=== PATIENT | male | born 1980 | race American Indian/Alaskan Native ===

== ENCOUNTER 2021-03-10 00:29 | Emergency (ER) | payer OTHER ==
[2021-03-10] MEDS ORDERED: Sodium Chloride 0.9% 10 ML Syringe FLUSH PRN (00:52)
--- NOTE | 2021-03-10 02:09 | EDM.PDOC ---
ED HPI GENERAL MEDICAL PROBLEM - General Chief Complaint: Respiratory Problem Stated Complaint: SOB/TROUBLE CATCHING HIS BREATH Time Seen by Provider: 03/10/21 00:47 Source of Information: Reports: Patient History Limitations: Reports: No Limitations - History of Present Illness INITIAL COMMENTS - FREE TEXT/NARRATIVE: The patient presents with shortness of breath. This has been going no for a few days. He says he feels bad. He has a cough, fever, chills, generalized weakness, headache, body aches but no diarrhea, nausea or vomiting. He did not loose his sense of smell or taste. He smokes. He has no other medical problems such as asthma, heart disease, hypertension, or hypercholesterolemia. - Related Data Allergies Allergy/AdvReac Type Severity Reaction Status Date / Time No Known Allergies Allergy Verified 03/10/21 01:33 Home Meds: Home Meds dexAMETHasone [Dexamethasone] 6 mg PO DAILY #9 tab 03/10/21 [Rx] Past Medical History - Past Surgical History Other Musculoskeletal Surgeries/Procedures:: neck surgery, all disks removed Social & Family History - Tobacco Use Tobacco Use Status *Q: Current Status Unknown ED ROS GENERAL - Review of Systems Review Of Systems: See Below Constitutional: Reports: Fever, Chills, Malaise, Weakness, Fatigue HEENT: Reports: No Symptoms Respiratory: Reports: Shortness of Breath, Cough Cardiovascular: Reports: No Symptoms Endocrine: Reports: No Symptoms GI/Abdominal: Denies: Abdominal Pain, Diarrhea, Nausea, Vomiting : Reports: No Symptoms Musculoskeletal: Reports: Muscle Pain ED EXAM, GENERAL - Physical Exam Exam: See Below Exam Limited By: No Limitations General Appearance: Alert, Mild Distress Ears: Normal External Exam Nose: Normal Inspection Head: Atraumatic, Normocephalic Neck: Normal Inspection Respiratory/Chest: No Respiratory Distress, Lungs Clear, Normal Breath Sounds Cardiovascular: Regular Rate, Rhythm, No Edema, No Murmur GI/Abdominal: Soft, Non-Tender, No Organomegaly, No Mass Extremities: Normal Inspection Neurological: Alert, Oriented, No Motor/Sensory Deficits Course - Vital Signs Last Recorded V/S: Last Vital Signs Temp 97.3 F 03/10/21 00:37 Pulse 98 03/10/21 00:37 Resp 24 H 03/10/21 00:37 BP 151/104 H 03/10/21 00:37 Pulse Ox 94 L 03/10/21 00:37 - Orders/Labs/Meds Orders: Active Orders 24 hr Category Date Time Status Cardiac Monitoring [RC] . DIRECTED Care 03/10/21 00:52 Active Oxygen Therapy [RC] PRN Care 03/10/21 00:52 Active Peripheral IV Care [RC] . DIRECTED Care 03/10/21 00:53 Active RT Post Treatment Assessment [RC] Click to Edit Care 03/10/21 02:11 Active RT Pre-Treatment Assessment [RC] Click to Edit Care 03/10/21 02:11 Active Chest 1V Frontal [CR] Stat Exams 03/10/21 00:53 Taken CBC WITH AUTO DIFF [HEME] Stat Lab 03/10/21 01:27 Results Sodium Chloride 0.9% [Saline Flush] Med 03/10/21 00:52 Active 10 ml FLUSH ASDIRECTED PRN Peripheral IV Insertion Adult [OM.PC] Stat Oth 03/10/21 00:52 Ordered Medication Orders Sodium Chloride (Sodium Chloride 0.9% 10 Ml Syringe) 10 ml FLUSH ASDIRECTED PRN PRN Reason: Keep Vein Open Last Admin: 03/10/21 01:32 Dose: 10 ml Documented by: LIAN Labs: Laboratory Tests 03/10/21 03/10/21 03/10/21 Range/Units 00:59 01:27 01:27 WBC 7.08 (4.23-9.07) K/mm3 RBC 6.99 H (4.63-6.08) M/mm3 Hgb 18.1 H (13.7-17.5) gm/dl Hct 55.2 H (40.1-51.0) % MCV 79.0 (79.0-92.2) fl MCH 25.9 (25.7-32.2) pg MCHC 32.8 (32.2-35.5) g/dl RDW Std Deviation 41.7 (35.1-43.9) fL Plt Count 288 (163-337) K/mm3 MPV 10.5 (9.4-12.3) fl Neut % (Auto) 50.9 (34.0-67.9) % Lymph % (Auto) 35.9 (21.8-53.1) % Boundary % (Auto) 10.5 (5.3-12.2) % Eos % (Auto) 2.1 (0.8-7.0) Baso % (Auto) 0.3 (0.1-1.2) % Neut # (Auto) 3.61 (1.78-5.38) K/mm3 Lymph # (Auto) 2.54 (1.32-3.57) K/mm3 Boundary # (Auto) 0.74 (0.30-0.82) K/mm3 Eos # (Auto) 0.15 (0.04-0.54) K/mm3 Baso # (Auto) 0.02 (0.01-0.08) K/mm3 D-Dimer, Quantitative 0.83 H (0.19-0.50) mg/L Sodium (136-145) mEq/L Potassium (3.5-5.1) mEq/L Chloride (98-107) mEq/L Carbon Dioxide (21-32) mEq/L Anion Gap (5-15) BUN (7-18) mg/dL Creatinine (0.7-1.3) mg/dL Est Cr Clr Drug Dosing mL/min Estimated GFR (MDRD) (>60) mL/min BUN/Creatinine Ratio (14-18) Glucose (70-99) mg/dL Calcium (8.5-10.1) mg/dL Total Bilirubin (0.2-1.0) mg/dL AST (15-37) U/L ALT (16-63) U/L Alkaline Phosphatase (46-116) U/L Troponin I (0.00-0.056) ng/mL C-Reactive Protein (<1.0) mg/dL Total Protein (6.4-8.2) g/dl Albumin (3.4-5.0) g/dl Globulin gm/dL Albumin/Globulin Ratio (1-2) SARS-CoV-2 RNA (LOS) Positive H (NEGATIVE) 03/10/21 Range/Units 01:27 WBC (4.23-9.07) K/mm3 RBC (4.63-6.08) M/mm3 Hgb (13.7-17.5) gm/dl Hct (40.1-51.0) % MCV (79.0-92.2) fl MCH (25.7-32.2) pg MCHC (32.2-35.5) g/dl RDW Std Deviation (35.1-43.9) fL Plt Count (163-337) K/mm3 MPV (9.4-12.3) fl Neut % (Auto) (34.0-67.9) % Lymph % (Auto) (21.8-53.1) % Boundary % (Auto) (5.3-12.2) % Eos % (Auto) (0.8-7.0) Baso % (Auto) (0.1-1.2) % Neut # (Auto) (1.78-5.38) K/mm3 Lymph # (Auto) (1.32-3.57) K/mm3 Boundary # (Auto) (0.30-0.82) K/mm3 Eos # (Auto) (0.04-0.54) K/mm3 Baso # (Auto) (0.01-0.08) K/mm3 D-Dimer, Quantitative (0.19-0.50) mg/L Sodium 137 (136-145) mEq/L Potassium 4.3 (3.5-5.1) mEq/L Chloride 99 (98-107) mEq/L Carbon Dioxide 28 (21-32) mEq/L Anion Gap 14.3 (5-15) BUN 9 (7-18) mg/dL Creatinine 1.1 (0.7-1.3) mg/dL Est Cr Clr Drug Dosing 108.83 mL/min Estimated GFR (MDRD) > 60 (>60) mL/min BUN/Creatinine Ratio 8.2 L (14-18) Glucose 137 H (70-99) mg/dL Calcium 9.7 (8.5-10.1) mg/dL Total Bilirubin 0.3 (0.2-1.0) mg/dL AST 76 H (15-37) U/L ALT 134 H (16-63) U/L Alkaline Phosphatase 116 (46-116) U/L Troponin I < 0.017 (0.00-0.056) ng/mL C-Reactive Protein 1.0 (<1.0) mg/dL Total Protein 8.5 H (6.4-8.2) g/dl Albumin 3.8 (3.4-5.0) g/dl Globulin 4.7 gm/dL Albumin/Globulin Ratio 0.8 L (1-2) SARS-CoV-2 RNA (LOS) (NEGATIVE) Meds: Medications Generic Name Dose Route Start Last Admin Trade Name Freq PRN Reason Stop Dose Admin Sodium Chloride 10 ml 03/10/21 00:52 03/10/21 01:32 Sodium Chloride 0.9% 10 Ml Syringe FLUSH 10 ml ASDIRECTED PRN Administration Keep Vein Open Discontinued Medications Generic Name Dose Route Start Last Admin Trade Name Freq PRN Reason Stop Dose Admin Albuterol 0 gm 03/10/21 02:10 Albuterol 6.7 Gm Inhaler INH 03/10/21 02:11 ONETIME ONE Dexamethasone 6 mg 03/10/21 02:10 Dexamethasone 4 Mg/Ml Sdv IVPUSH 03/10/21 02:11 ONETIME ONE - Re-Assessments/Exams Free Text/Narrative Re-Assessment/Exam: 03/10/21 02:08 I ordered oxygen, IV saline lock, CXR, labs and COVID 19. 03/10/21 02:14 His CXR shows no pneumonia. His Hgb was elevated at 18.1. His D-dimer was elevated at 0.83. His glucose is elevated at 137. His AST is elevated at 76. His ALT was elevated at 134. His troponin is negative. His is COVID 19 positive. I will give him a dose of dexamethasone and a prescription for more and an inhaler. Departure - Departure Time of Disposition: 02:30 Disposition: Home, Self-Care 01 Condition: Good Clinical Impression: COVID-19 - Discharge Information *PRESCRIPTION DRUG MONITORING PROGRAM REVIEWED*: Not Applicable *COPY OF PRESCRIPTION DRUG MONITORING REPORT IN PATIENT NADINE: Not Applicable Prescriptions: dexAMETHasone [Dexamethasone] 6 mg PO DAILY #9 tab Referrals: Turner Alan Jr, MD [Primary Care Provider] - Forms: ED Department Discharge Additional Instructions: Drink plenty of fluids. Take the dexamethasone 6mg or 1.5 pills by mouth daily for 9 days. Take tylenol or motrin for any fever or pain. Follow up with your doctor within a week. Please return if you are worse. Sepsis Event Note (ED) - Evaluation Sepsis Screening Result: Possible Sepsis Risk - Focused Exam Vital Signs: Vital Signs Temp Pulse Resp BP Pulse Ox 03/10/21 00:37 97.3 F 98 24 H 151/104 H 94 L - My Orders Last 24 Hours: My Active Orders 03/10/21 00:52 Cardiac Monitoring [RC] . DIRECTED Oxygen Therapy [RC] PRN Sodium Chloride 0.9% [Saline Flush] 10 ml FLUSH ASDIRECTED PRN Peripheral IV Insertion Adult [OM.PC] Stat 03/10/21 00:53 Peripheral IV Care [RC] . DIRECTED Chest 1V Frontal [CR] Stat 03/10/21 01:27 CBC WITH AUTO DIFF [HEME] Stat 03/10/21 02:11 RT Post Treatment Assessment [RC] Click to Edit RT Pre-Treatment Assessment [RC] Click to Edit - Assessment/Plan Last 24 Hours: My Active Orders 03/10/21 00:52 Cardiac Monitoring [RC] . DIRECTED Oxygen Therapy [RC] PRN Sodium Chloride 0.9% [Saline Flush] 10 ml FLUSH ASDIRECTED PRN Peripheral IV Insertion Adult [OM.PC] Stat 03/10/21 00:53 Peripheral IV Care [RC] . DIRECTED Chest 1V Frontal [CR] Stat 03/10/21 01:27 CBC WITH AUTO DIFF [HEME] Stat 03/10/21 02:11 RT Post Treatment Assessment [RC] Click to Edit RT Pre-Treatment Assessment [RC] Click to Edit
[2021-03-10] MEDS ORDERED: Dexamethasone 4 MG/ML SDV IVPUSH ONE (02:10)
[2021-03-10] MEDS ORDERED: Albuterol 6.7 GM Inhaler INH ONE (02:10)
--- NOTE | 2021-03-10 08:19 | CR ---
Chest: Frontal view of the chest was obtained. Comparison: No prior chest imaging is available. Heart size and mediastinum are normal. Lungs are clear with no acute parenchymal change. Bony structures are within normal limits for the patient's age. Impression: 1. Nothing acute is seen on frontal chest x-ray. Diagnostic code #1
== END 2021-03-10 02:38 | disposition home or self-care (01) ==
LOC: JD.ED 00:29
DX: U07.1 COVID-19 (principal)
CPT/HCPCS: 36415; 71045; 80053; 84484; 85025; 85379; 86140; 87635; 93005; 94640; 96374; 99285; A9270; J1100; 99283; U0002

== ENCOUNTER 2022-09-13 22:32 | Emergency (ER) | payer SELFPAY ==
[2022-09-14 01:32] LABS: CORONAVIRUS COVID-19 NAA NEGATIVE (NEGATIVE)
[2022-09-14] MEDS ORDERED: Sodium Chloride 0.9% 1,000 ML IV SCH (03:30)
[2022-09-14] MEDS ORDERED: Iopamidol 755 Mg/ML 100 ML Bottle IVPUSH ONE (03:55)
[2022-09-14] MEDS ORDERED: Rivaroxaban 15 MG Tab PO STA (05:03)
== END 2022-09-14 05:25 | disposition home or self-care (01) ==
LOC: JD.ED 22:32
DX: I26.99 Other pulmonary embolism without acute cor pulmonale (principal); J18.9 Pneumonia, unspecified organism; R73.9 Hyperglycemia, unspecified; I10 Essential (primary) hypertension; F17.210 Nicotine dependence, cigarettes, uncomplicated; E66.9 Obesity, unspecified; Z68.30 Body mass index [BMI] 30.0-30.9, adult; Z79.899 Other long term (current) drug therapy; Z20.822 Contact with and (suspected) exposure to COVID-19
CPT/HCPCS: 0240U; 36415; 71046; 71275; 80053; 83605; 83880; 85007; 85027; 85379; 85610; 85730; 86140; 87040; 99285; A9270; Q9967

== ENCOUNTER 2022-09-25 13:41 | Emergency (ER) | payer SELFPAY ==
[2022-09-25] MEDS ORDERED: Sodium Chloride 0.9% 10 ML Syringe FLUSH PRN (14:39)
[2022-09-25] MEDS ORDERED: Albuterol 6.7 GM Inhaler INH ONE (14:46)
[2022-09-25 15:13] LABS: CORONAVIRUS COVID-19 NAA NEGATIVE (NEGATIVE)
[2022-09-25 16:37] LABS: ESTIMATED GFR 98 mL/min (>60)
== END 2022-09-25 17:30 | disposition home or self-care (01) ==
LOC: JD.ED 13:41
DX: J18.9 Pneumonia, unspecified organism (principal); K64.9 Unspecified hemorrhoids; R00.0 Tachycardia, unspecified; I44.4 Left anterior fascicular block; I10 Essential (primary) hypertension; E66.9 Obesity, unspecified; Z68.35 Body mass index [BMI] 35.0-35.9, adult; Z86.711 Personal history of pulmonary embolism; Z79.01 Long term (current) use of anticoagulants; Z79.899 Other long term (current) drug therapy; Z20.822 Contact with and (suspected) exposure to COVID-19
CPT/HCPCS: 0240U; 36415; 71046; 80053; 83880; 84484; 85025; 85610; 85730; 86140; 93005; 94640; 99285; A9270

== ENCOUNTER 2022-10-02 11:29 | Emergency (ER) | payer SELFPAY ==
[2022-10-02] MEDS ORDERED: Sodium Chloride 0.9% 10 ML Syringe FLUSH PRN ×2 (12:00→12:31)
[2022-10-02] MEDS ORDERED: Furosemide 40 MG/4 ML VIAL IVPUSH ONE (12:21)
[2022-10-02] MEDS ORDERED: Iopamidol 755 Mg/ML 100 ML Bottle IVPUSH ONE (12:31)
[2022-10-02] MEDS ORDERED: Sodium Chloride 0.9% 100 ML IV SCH (12:45)
[2022-10-02 12:46] LABS: CORONAVIRUS COVID-19 NAA NEGATIVE (NEGATIVE)
[2022-10-02] MEDS ORDERED: Albuterol/Ipratropium 3.0-0.5 MG/3 ML Neb Soln NEB ONE (13:10)
[2022-10-02] MEDS ORDERED: Rivaroxaban 10 MG Tab PO ONE (13:50)
== END 2022-10-02 14:45 | disposition home or self-care (01) ==
LOC: JD.ED 11:29
DX: I26.94 Multiple subsegmental thrombotic pulmonary emboli without acute cor pulmonale (principal); R06.02 Shortness of breath; R60.9 Edema, unspecified; I10 Essential (primary) hypertension; F17.210 Nicotine dependence, cigarettes, uncomplicated; E66.9 Obesity, unspecified; Z68.30 Body mass index [BMI] 30.0-30.9, adult; Z79.01 Long term (current) use of anticoagulants; Z20.822 Contact with and (suspected) exposure to COVID-19
CPT/HCPCS: 0241U; 36415; 71045; 71275; 80053; 80306; 83880; 84484; 85025; 85379; 86140; 93005; 94640; 94761; 96374; 99285; A9270; J1940; J3490; Q9967; J7620-GY

== ENCOUNTER 2022-10-12 12:05 | Emergency (ER) | payer SELFPAY ==
[2022-10-12] MEDS ORDERED: Sodium Chloride 0.9% 10 ML Syringe FLUSH PRN (12:50)
[2022-10-12] MEDS ORDERED: Furosemide 40 MG/4 ML VIAL IVPUSH ONE (12:51)
== END 2022-10-12 16:30 | disposition home or self-care (01) ==
LOC: SUPCPDRO 12:05 → JD.ED 12:05
DX: I26.94 Multiple subsegmental thrombotic pulmonary emboli without acute cor pulmonale (principal); K64.9 Unspecified hemorrhoids; R60.9 Edema, unspecified; I10 Essential (primary) hypertension; E66.9 Obesity, unspecified; Z79.01 Long term (current) use of anticoagulants; Z86.16 Personal history of COVID-19; Z68.38 Body mass index [BMI] 38.0-38.9, adult
CPT/HCPCS: 36415; 71046; 80053; 83880; 84484; 85025; 85610; 85730; 86140; 93005; 96374; 99285; J1940; J3490

== ENCOUNTER 2023-02-05 17:13 | Emergency (ER) | payer SELFPAY ==
[2023-02-05] MEDS ORDERED: Sodium Chloride 0.9% 10 ML Syringe FLUSH PRN (17:40)
[2023-02-05] MEDS ORDERED: Albuterol/Ipratropium 3.0-0.5 MG/3 ML Neb Soln NEB ONE (17:49)
[2023-02-05] MEDS ORDERED: predniSONE 20 MG Tab PO ONE (18:50)
== END 2023-02-05 19:07 | disposition home or self-care (01) ==
LOC: JD.ED 17:13
DX: R06.02 Shortness of breath (principal); R06.2 Wheezing; R00.0 Tachycardia, unspecified; I11.0 Hypertensive heart disease with heart failure; I50.9 Heart failure, unspecified; E66.9 Obesity, unspecified; F17.210 Nicotine dependence, cigarettes, uncomplicated; Z68.33 Body mass index [BMI] 33.0-33.9, adult; Z86.711 Personal history of pulmonary embolism; Z86.16 Personal history of COVID-19; Z79.01 Long term (current) use of anticoagulants; Z79.899 Other long term (current) drug therapy
CPT/HCPCS: 36415; 71045; 80053; 83605; 83880; 84484; 85025; 86140; 93005; 94640; 99285; J3490; J7512; 93010; 99284; J7620-GY

== ENCOUNTER 2023-02-26 12:55 | Emergency (ER) | payer SELFPAY | END 2023-02-26 14:18 | disposition home or self-care (01) | LOC: JD.ED 12:55 | DX: I11.0 Hypertensive heart disease with heart failure (principal); I50.9 Heart failure, unspecified; E66.9 Obesity, unspecified; Z68.32 Body mass index [BMI] 32.0-32.9, adult; Z79.01 Long term (current) use of anticoagulants; Z79.899 Other long term (current) drug therapy | CPT/HCPCS: 93005; 99284 ==

== ENCOUNTER 2023-10-17 20:58 | Emergency (ER) | payer SELFPAY ==
[2023-10-17] MEDS ORDERED: Sodium Chloride 0.9% 2,000 ML IV ONE (21:49)
[2023-10-17] MEDS ORDERED: Sodium Chloride 0.9% 10 ML Syringe FLUSH PRN (21:49)
[2023-10-17] MEDS ORDERED: Prochlorperazine 10 MG/2 ML SDV IVPUSH ONE (21:50)
[2023-10-17 22:07] LABS: CORONAVIRUS COVID-19 NAA NEGATIVE (NEGATIVE); INFLUENZA A NAA NEGATIVE (NEGATIVE)
[2023-10-17] MEDS ORDERED: Loperamide 2 MG Cap PO ONE (22:32)
[2023-10-17 22:33] LABS: BASOPHILS PERCENT AUTO 0.3 % (0.0-1.0); EOSINOPHILS ABSOLUTE AUTO 0.5 K/mm3 (0.0-0.4); EOSINOPHILS PERCENT AUTO 3.7 % (0.0-6.0); HEMOGLOBIN 21.7 gm/dl (14.0-18.0); IMMATURE GRAN PERCENT AUTO 0.7 % (0.0-0.4); LYMPHOCYTES PERCENT AUTO 21.7 % (24.0-44.0); MEAN CORPUSCULAR HGB CONC 34.4 g/dl (32.0-36.0); MEAN CORPUSCULAR VOLUME 78.5 fl (83.0-99.0); MEAN PLATELET VOLUME 10.5 fl (9.4-12.4); MONOCYTES ABSOLUTE AUTO 1.7 K/mm3 (0.0-0.8); MONOCYTES PERCENT AUTO 12.4 % (0.0-8.0); NEUTROPHILS ABSOLUTE AUTO 8.5 K/mm3 (1.8-7.7); NEUTROPHILS PERCENT AUTO 61.2 % (41.0-71.0); PLATELET COUNT,PLT 347 K/mm3 (150-400); RED BLOOD CELL COUNT 8.03 M/mm3 (4.52-5.90); WHITE BLOOD CELL COUNT,WBC 13.91 K/mm3 (3.9-11.3)
[2023-10-17 22:56] LABS: A/G RATIO 0.6 (1-2); ALBUMIN 3.2 g/dl (3.4-5.0); ANION GAP 20.9 (5-15); BILIRUBIN TOTAL 1.3 mg/dL (0.2-1.0); CALCIUM 9.8 mg/dL (8.5-10.1); EST CRCL DRUG DOSING (CG) 38.73 mL/min; POTASSIUM,K 3.9 mEq/L (3.5-5.1); PROTEIN TOTAL,TP 8.2 g/dl (6.4-8.2)
[2023-10-17 23:05] LABS: SLIDE REVIEW ABNORMAL SMEAR
[2023-10-17] MEDS ORDERED: Sodium Chloride 0.9% 1,000 ML IV ONE (23:55)
[2023-10-17 23:57] LABS: HEMOGLOBIN A1C 8.3 %
[2023-10-18 02:57] LABS: BASOPHILS ABSOLUTE AUTO 0.1 K/mm3 (0.0-0.2); BASOPHILS PERCENT AUTO 0.5 % (0.0-1.0); EOSINOPHILS ABSOLUTE AUTO 0.4 K/mm3 (0.0-0.4); EOSINOPHILS PERCENT AUTO 4.1 % (0.0-6.0); HEMATOCRIT 59.3 % (42.0-52.0); HEMOGLOBIN 20.5 gm/dl (14.0-18.0); IMMATURE GRAN ABSOLUTE AUTO 0.06 K/mm3 (0.00-0.05); IMMATURE GRAN PERCENT AUTO 0.6 % (0.0-0.4); LYMPHOCYTES ABSOLUTE AUTO 2.8 K/mm3 (1.0-4.8); LYMPHOCYTES PERCENT AUTO 26.7 % (24.0-44.0); MEAN CORPUSCULAR HEMOGLOBIN 27.3 pg (28.0-32.0); MEAN CORPUSCULAR HGB CONC 34.6 g/dl (32.0-36.0); MEAN PLATELET VOLUME 10.5 fl (9.4-12.4); MONOCYTES ABSOLUTE AUTO 1.3 K/mm3 (0.0-0.8); NEUTROPHILS ABSOLUTE AUTO 5.7 K/mm3 (1.8-7.7); NEUTROPHILS PERCENT AUTO 55.1 % (41.0-71.0); PLATELET COUNT,PLT 261 K/mm3 (150-400); RED BLOOD CELL COUNT 7.51 M/mm3 (4.52-5.90)
[2023-10-18 03:20] LABS: ANION GAP 18.4 (5-15); BUN/CREATININE RATIO 13.8 (14-18); CALCIUM 8.6 mg/dL (8.5-10.1); CREATININE 2.1 mg/dL (0.7-1.3); EST CRCL DRUG DOSING (CG) 55.33 mL/min
[2023-10-18 03:25] LABS: POTASSIUM,K 3.4 mEq/L (3.5-5.1)
[2023-10-18 03:33] LABS: APPEARANCE,URINE CLEAR (Clear); BILIRUBIN,URINE NEGATIVE (Negative); COLOR,URINE YELLOW (Yellow); GLUCOSE,URINE NEGATIVE (Negative); KETONES,URINE NEGATIVE (Negative); LEUKOCYTE ESTERASE,URINE NEGATIVE (Negative); NITRITE,URINE NEGATIVE (Negative); OCCULT BLOOD,URINE NEGATIVE (Negative); PROTEIN,URINE NEGATIVE (Negative); UROBILINOGEN,URINE 0.2 (0.2-1.0)
== END 2023-10-18 04:21 | disposition home or self-care (01) ==
LOC: JD.ED 20:58
DX: N28.9 Disorder of kidney and ureter, unspecified (principal); I11.0 Hypertensive heart disease with heart failure; I50.9 Heart failure, unspecified; F17.210 Nicotine dependence, cigarettes, uncomplicated; Z20.822 Contact with and (suspected) exposure to COVID-19; Z86.16 Personal history of COVID-19; Z79.01 Long term (current) use of anticoagulants; Z79.899 Other long term (current) drug therapy
CPT/HCPCS: 0240U; 36415; 80048; 80053; 81003; 83036; 85025; 96361; 96374; 99284; A9270; J0780; J7030

== ENCOUNTER 2024-10-18 11:07 | Emergency (ER) | payer MEDICAID ==
[2024-10-18] MEDS: Lidocaine 1% 10 ML MDV INJECT ONE (11:36)
[2024-10-18] MEDS ORDERED: Sulfamethoxazole/Trimethoprim 800-160 MG Tab PO ONE ×2 (12:33→12:47)
[2024-10-18] MEDS: Clindamycin HCl 150 MG Cap PO ONE (14:13)
[2024-10-18 18:23] LABS: APPEARANCE SYNOVIAL FLUID TURBID (CLEAR); COLOR,SYNOVIAL FLUID PINK; SITE,SYNOVIAL FLUID ELBOW; VOLUME SYNOVIAL FLUID 5; WBC,SYNOVIAL FLUID 41120 cells/uL (0-200)
[2024-10-18 18:24] LABS: RBC,SYNOVIAL FLUID 99000 cells/uL (0-0)
== END 2024-10-18 14:15 | disposition home or self-care (01) ==
LOC: JD.ED 11:07
DX: M25.521 Pain in right elbow (principal); E66.9 Obesity, unspecified; Z88.8 Allergy status to other drugs, medicaments and biological substances; Z79.899 Other long term (current) drug therapy; Z86.16 Personal history of COVID-19; Z68.33 Body mass index [BMI] 33.0-33.9, adult
CPT/HCPCS: 87070; 87075; 87205; 89060; 99283; A9270-GY; J3490